=== PATIENT | female | born 1990 | race Caucasian/White ===

== ENCOUNTER 2017-10-31 06:00 | Inpatient (IN) | payer BC ==
[2017-10-29 14:17] LABS: Urine Appearance TURBID; Urine Bilirubin NEGATIVE (NEG); Urine Blood NEGATIVE (NEG); Urine Color YELLOW; Urine Glucose NEGATIVE (NEG); Urine Protein NEGATIVE (NEG)
[2017-10-29 14:18] LABS: Urine Microscopic Reflex ORDER UMIC
[2017-10-29 14:24] LABS: Absolute Lymphocytes (CBC) 1.5 K/uL (0.7-4.9); Absolute Monocytes 0.4 K/uL (0.1-1.3); Absolute Neutrophil 3.2 K/uL (1.8-8.0); Basophils % 0.5 % (0-1.3); Eosinophils % 1.7 % (0-4.4); Hematocrit 33.7 % (36.0-45.0); Lymphocytes % 29.3 % (15.3-44.8); MCH 22.8 pg (27.0-35.0); MCV 72.5 fL (80-100); MPV 7.7 fL (7.6-11.3); Monocytes % 7.2 % (3.3-12.3); RBC Red Blood Cell Count 4.65 M/uL (3.86-4.86)
[2017-10-29 14:25] LABS: Urine Bacteria NONE SEEN /HPF (<20); Urine RBC NONE SEEN /HPF (NONE SEEN)
[2017-10-29 14:26] LABS: Urine Amorphous Sediment 4+ /HPF (NONE SEEN); Urine Culture Reflex Order NOT NEEDED
[2017-10-31] MEDS ORDERED: Ringers Lactate 1,000 ML IV ONE ×5 (06:20→14:07)
[2017-10-31] MEDS ORDERED: FENTANYL CITR 250 MCG/5 ML ONE ×2 (06:59→11:46)
[2017-10-31] MEDS ORDERED: ROCURONIUM 50 MG/5 ML VIAL IV ONE (06:59)
[2017-10-31] MEDS ORDERED: MIDAZOLAM HCL 2 MG/2 ML INJ ONE (06:59)
[2017-10-31] MEDS ORDERED: PROPOFOL 200 MG/20 ML VIAL IV ONE (06:59)
[2017-10-31] MEDS ORDERED: ONDANSETRON HCL 40 MG/20 ML VIAL ONE (06:59)
[2017-10-31] MEDS ORDERED: DEXAMETHASONE 10 MG/ML VIAL ONE (06:59)
[2017-10-31] MEDS ORDERED: LIDOCAINE 2% MPF 5 ML VIAL ONE (06:59)
[2017-10-31] MEDS: NA CHLORIDE 0.9% 1,000 ML ONE ×2 (07:06→07:30)
[2017-10-31] MEDS ORDERED: NA CHLORIDE 0.9% 100 ML IV ONE (07:10)
[2017-10-31] MEDS ORDERED: VASOPRESSIN 20 UNIT/ML VIAL ONE (07:11)
[2017-10-31] MEDS ORDERED: FENTANYL CITR 100 MCG/2 ML ONE ×2 (09:34→10:30)
[2017-10-31] MEDS ORDERED: EPHEDRINE SULF 50 MG/ML SYR ONE (12:12)
[2017-10-31] MEDS ORDERED: ALBUMIN HUM 5% 250 ML IV ONE (12:16)
[2017-10-31] MEDS ORDERED: NA CHLORIDE 0.9% 1,000 ML ONE (12:59)
[2017-10-31] MEDS ORDERED: KETOROLAC 30 MG/ML INJ ONE (13:18)
[2017-10-31] MEDS ORDERED: Mastisol Adhesive Liq ONE (14:01)
[2017-10-31 14:11] LABS: Hematocrit 25.1 % (36.0-45.0)
[2017-10-31] MEDS: MORPHINE 4 MG/ML SYR ONE ×4 (14:41→15:05)
[2017-10-31] MEDS ORDERED: KETOROLAC 30 MG/ML INJ IV PRN (14:51)
[2017-10-31] MEDS ORDERED: SODIUM CHLORIDE IV PRN (14:53)
[2017-10-31] MEDS ORDERED: [UNRECOGNIZED DRUG - OTHER] IV PRN (14:53)
[2017-10-31] MEDS ORDERED: MORPHINE IV PRN (14:53)
[2017-10-31] MEDS ORDERED: Ringers Lactate 1,000 ML IV SCH (15:00)
[2017-10-31 16:12] VITALS: BMI 30.5
[2017-10-31 18:38] LABS: Absolute Lymphocytes (CBC) 0.7 K/uL (0.7-4.9); Absolute Monocytes 0.7 K/uL (0.1-1.3); Absolute Neutrophil 10.7 K/uL (1.8-8.0); Basophils % 0.1 % (0-1.3); Hematocrit 28.3 % (36.0-45.0); Lymphocytes % 6.1 % (15.3-44.8); MCH 24.2 pg (27.0-35.0); MCV 77.1 fL (80-100); MPV 7.6 fL (7.6-11.3); Monocytes % 5.6 % (3.3-12.3); RBC Red Blood Cell Count 3.67 M/uL (3.86-4.86)
[2017-11-01 06:42] LABS: Absolute Lymphocytes (CBC) 1.4 K/uL (0.7-4.9); Absolute Monocytes 0.5 K/uL (0.1-1.3); Absolute Neutrophil 5.2 K/uL (1.8-8.0); Basophils % 0.2 % (0-1.3); Hematocrit 24.3 % (36.0-45.0); Lymphocytes % 19.9 % (15.3-44.8); MCH 24.3 pg (27.0-35.0); MCV 76.3 fL (80-100); MPV 7.7 fL (7.6-11.3); Monocytes % 6.7 % (3.3-12.3); RBC Red Blood Cell Count 3.19 M/uL (3.86-4.86)
[2017-11-01 09:02] LABS: Platelet Estimate ADEQ; Urine White Blood Cell Casts OK
[2017-11-01 09:03] LABS: Anisocytosis 2+; Blood Morphology Comment NOTED (NOT SEEN); Teardrop Cell 1+
[2017-11-01] MEDS ORDERED: PROMETHAZINE 25 MG/SUPP PR PRN (14:49)
[2017-11-01] MEDS: HYDROCODONE/APAP 5/325 MG TAB PO PRN ×2 (15:10→21:51)
[2017-11-01 18:16] LABS: Absolute Lymphocytes (CBC) 1.6 K/uL (0.7-4.9); Absolute Monocytes 0.6 K/uL (0.1-1.3); Absolute Neutrophil 6.9 K/uL (1.8-8.0); Basophils % 0.4 % (0-1.3); Eosinophils % 0.3 % (0-4.4); Hematocrit 24.6 % (36.0-45.0); Lymphocytes % 17.7 % (15.3-44.8); MCH 24.4 pg (27.0-35.0); MCV 77.1 fL (80-100); Monocytes % 6.2 % (3.3-12.3); RBC Red Blood Cell Count 3.19 M/uL (3.86-4.86)
[2017-11-01 23:06] VITALS: O2SAT 99
[2017-11-02] MEDS: HYDROCODONE/APAP 5/325 MG TAB PO PRN ×4 (03:26→21:01)
[2017-11-02] MEDS: FERROUS SULFATE 325 MG TAB PO SCH ×2 (10:28→21:00)
[2017-11-02 10:53] LABS: Absolute Lymphocytes (CBC) 1.3 K/uL (0.7-4.9); Absolute Monocytes 0.6 K/uL (0.1-1.3); Absolute Neutrophil 7.3 K/uL (1.8-8.0); Basophils % 0.4 % (0-1.3); Eosinophils % 0.3 % (0-4.4); Hematocrit 24.2 % (36.0-45.0); MCH 24.9 pg (27.0-35.0); MCV 76.7 fL (80-100); MPV 7.9 fL (7.6-11.3); Monocytes % 6.9 % (3.3-12.3); RBC Red Blood Cell Count 3.15 M/uL (3.86-4.86)
[2017-11-02 11:26] LABS: Anisocytosis 1+; Blood Morphology Comment NOTED (NOT SEEN); Ovalocytes 1+; Platelet Estimate ADEQ; Urine White Blood Cell Casts OK
[2017-11-03] MEDS: HYDROCODONE/APAP 5/325 MG TAB PO PRN ×2 (03:15→08:47)
--- NOTE | 2017-11-03 04:28 | OP ---
Date of Procedure: 10/31/2017 Surgeon: Ines Carrasco MD Flap Curer: Echo Welch M.D. and Loreto Saeed. Preoperative Diagnoses: 1.Heavy menstrual bleeding. 2.Leiomyoma, that is increasing in size. 3.Deep dyspareunia. Postoperative Diagnoses: 1.Heavy menstrual bleeding. 2.Leiomyoma, that is increasing in size. 3.Deep dyspareunia. Procedures Performed: 1.Diagnostic hysteroscopy, diagnostic laparoscopy with laparoscopic myomectomy, the very last part o f the myoma removal. 2.Laparoscopic myomectomy converted to open laparotomy for retrieval of the fibroid specimen as well as repair of the uterus. Multiple fibroids at least 5 or greater. Size of the largest fibroid was at least 15 to 20 cm. Estimated Blood Loss: 1900. Urine Output: 300. Transfusion: 2 units PRBCs, besides her hydration being Ringer's lactate. Specimens: Multiple Leiomyomata. Drains: Esparza catheter. Complications: No complications. Condition: Stable. Description Of Procedure: After informed consent was verified, the patient was taken back to the ope rating room, placed in a supine fashion on the operating table. After general anesthesia was given, she was placed in a dorsal lithotomy position using Pillo stirrups. No antibiotics were given since this was a straightforward myomectomy. The entire abdomen, vulva, vagina, and perineum were prepped and draped in a sterile fashion. Esparza was placed to drain the bladder and attached to a drainage bag. The cervix was exposed with a specul um. Anterior lip grasped with 2 Allis clamps. Diagnostic SlimLine hysteroscope with a 30-degree dre s and normal saline was used for distention medium. Direct hysteroscopy through the cervical canal i nto the uterine cavity was obtained. There was a large protrusion of myoma in the posterior wall to the anterior fundus. The endometrial canal appeared to be unremarkable, otherwise, with no intracavi tary lesions. Both cornual ends were visualized. Scope was removed. Diagnostic VCare inserted. is area was draped. A 0.5 cm supraumbilical incision was made about 10 cm above the umbilicus in a vertical midline plane . The fascia was exposed, incised and tagged. Peritoneum was entered bluntly with the help of finge r and S retractors were placed to enter inside the Napoleon. The abdominal cavity was insufflated with carbon dioxide and scope introduced. A 10 mm, 30-degree lens site of entry was checked and was unre markable. The incision was right below the falciform ligament. A 5 mm from this point a trocar was introduced, and a 5 mm left lower quadrant incision lateral to th e umbilicus above and lateral to the umbilicus. The 5 mm port was placed without any problems in the right lower quadrant, a 5 mm port was placed on the opposite side, a mirror image without any proble ms. Once good visualization was obtained, the entire fibroid appeared to be fundal and posterior. The tu bal openings were at the superior lateral aspects of the fibroid. The ovaries appeared to be unremar kable. There was very little mobility of the uterus due to the large heavy fibroid. There was no sp marcy between the uterus and the posterior wall of the abdominal cavity. Mobility was very minimal wit h the VCare. However, this was more helpful than not. On the right lower quadrant 5 mm extended to 10 mm, and a 10 mm and an 11mm port was placed. Dilute vasopressin 20 units in 40 cc of normal saline was injected, about a total of 40 cc was inject ed on the midline plane, where the incision would be made on the fibroid. There was no way I could r each the uterine arteries because the mobility and visualization was very little due to the fibroid, and very little mobility with the VCare, so there was no place for me to isolate the uterines or clip them . The harmonic scalpel was opened up. An incision was made with the Harmonic on the serosa myometrium. This incision was carried down all the way to the level of the fibroid. The incision was at least 15 cm from top to the bottom on the anterior aspect. Dissection was carried to separate the fibroid, gradually on both sides flaps were raised. A 10 mm tenaculum was used to grasp the uterus and syste matically dissected down laterally on both sides. Then, posteriorly, I came down a little further, a n incision about 2 to 3 cm was made to allow the fibroid to be scooted out. The tenaculum was placed on multiple spots on the fibroid to be able to move it and be able to dissect it. Systematically, c arefully the fibroid was shelled down, the myometrium appeared to be very thick on top. This seemed to be completely intramural fibroid, more closer to the endometrium, than the serosa. Painstakingly, a long time was taken to dissect and remove the fibroid. There was some bleeding init ially, about 300 mL. However, once I got down to the base of the fibroid, there were 2 other little fibroids that were removed. The fibroids were held with the help of a 0 Vicryl loop stitch. The 1 t hat was larger was held and through the left lower quadrant port. Then using the push-pull technique and using the suction tip dissection was performed. Once I came to the base, there was much bleedin g, probably about 3 to 4 cm of the fibroid was still left attached to the endometrial canal in its po sterior aspect, here I recognized where the endometrial canal was opened up, so stayed posterior to t he endometrium and the myoma was attempted to be removed here. The bleeding started to get heavier. There were couple of other fibroids on each side which were also dissected, and kept with the specim en. Once the bleeding got heavier, 2000 mL, then a stat H and H was drawn and sent. However, there was some trouble with the lab running this, so we ordered 2 units of blood. When the dissection and the fibroid was being removed from the posterior wall as well as the bed of the endometrium, she star keerthi to bleed heavier and at this point decided to perform a laparotomy because it is probably very sm all amount of the fibroid left, so most of the myomectomy was conducted. I thought it was appropriat e to do a low transverse incisions, so Pfannenstiel skin incision was made with a 10 blade. Dissecti on carried through the subcutaneous fat with the help of the monopolar Bovie. Then, fascia incised w ith the Bovie and incision carried laterally on both sides. First, a small incision made, then it wa s extended from a lateral normal lap and the fascia was held, and the muscles were dissected superior ly and inferiorly. Then, the peritoneum was identified by using hemostats. Between 2 hemostats this was picked up, the peritoneum entered sharply with scissors. Then the peritoneal cavity was entered , the incision extended superiorly and inferiorly to encompass the entire incision. Here, an attempt was made to bring the fibroid out. It was very difficult. Tenaculum and mass clamps were placed on the fibroid to pull them up, partially we had to cut the fibroid in order for me to scoot that out th rough the incision. Once, partially the fibroids were cut, then the entire fibroid was delivered out side and this had split the uterus at the fundus going posteriorly into the posterior wall into 2, it was almost like bisecting the uterus, so once the fibroid was removed from its base with the help of Bovie as well as sharp dissection, the specimen was handed out. There were 2 other specimens that w ere removed. After thorough irrigation and suction the canal was identified. The endometrium was cl osed without actually suturing the endometrium itself being in the subendometrial plane. The tissues were brought together with a simple running 0 Vicryl stitch imbricating the endometrium. Then, the myometrium was closed, especially in the posterior wall where it was thick and needed for the cavity to be collapsed without loss of any myometrial tissue. The suture line was sewed in 4 layers besides the subendometrial suturing, which was the fifth layer. After 3 layers of closure in a continuous l ocked fashion, the rest of them all in a continuous running fashion. The entire uterus was reshaped and looked good and looked hemostatic. The 6 line of suturing was a 3-0 Monocryl. This was used in a baseball stitch to close the entire incision. The tips were buried and the entire uterus was close d and was perfectly hemostatic here. Tubes and ovaries were inspected. No evidence of any damage to the tubal openings of the cornual ends, and there was no expansion of any areas of the myometrium re presenting bleeding, so thorough irrigation and suction of the peritoneal cavity was done. Clots wer e removed, irrigation appeared to be clear at the end, then the bowel was inspected, no evidence of a ny trauma here. The uterus was put back. The peritoneum was closed with the help of 3-0 Vicryl in a continuous running fashion. Then, the rectus muscle was brought with chromic sutures in a horizonta l mattress fashion. Then, fascia closed with the help of continuous running 0 Vicryl stitch. Subcut aneous tissues with interrupted 3-0 chromic and subcuticular with the help of 4-0 Monocryl. After this was closed, realized that there was a small fibroid left that was hanging from the left lo wer quadrant port, this was brought out by inserting the scope back in and insufflating the abdominal cavity and the supraumbilical scope port was closed with the help of the tag sutures in a figure-of- eight fashion and so I extended the incision in the right lower quadrant port after putting the 10 po rt back in, the camera was inserted through here. Then, once the suture of the of the specimen was p ushed back into the peritoneal cavity. The stent was changed to 5 and a grasper was used to bring th e stitch out through the 10, then gas was desufflated. The 5 port was closed with interrupted 4-0 Mo nocryl. The incision on the fascia of the right lower quadrant 10 mm was increased to 15 mm and the fibroid was retrieved by slightly morcellating it. Then, the fascia was closed in a continuous runni ng fashion with 0 Vicryl, then all the skin incisions closed with the help of 4-0 Monocryl. The Fole y was left in place after draining completely. The first unit was transfused. The patient's vitals w ere completely stable. Instrument, needle, and sponge counts x3 were done at the end of the case and they were correct. She was recovered from anesthesia and taken to PACU in stable condition. She wi ll be admitted to the floor for monitoring for 2 or 3 days postoperatively. GREER Voice ID: [id number] Report ID: [id number]
[2017-11-03 05:02] LABS: Absolute Lymphocytes (CBC) 1.7 K/uL (0.7-4.9); Absolute Monocytes 0.7 K/uL (0.1-1.3); Absolute Neutrophil 5.9 K/uL (1.8-8.0); Basophils % 0.7 % (0-1.3); Eosinophils % 0.7 % (0-4.4); Hematocrit 23.5 % (36.0-45.0); Lymphocytes % 19.9 % (15.3-44.8); MCH 24.4 pg (27.0-35.0); MPV 8.2 fL (7.6-11.3); Monocytes % 8.1 % (3.3-12.3); RBC Red Blood Cell Count 3.05 M/uL (3.86-4.86)
[2017-11-03 05:58] VITALS: TEMP 99.3
[2017-11-03 07:30] VITALS: BP 113/58
[2017-11-03] MEDS: FERROUS SULFATE 325 MG TAB PO SCH (08:47)
== END 2017-11-03 09:00 | disposition home or self-care (01) | DRG 742 ==
LOC: OR 06:00 → 2ND-WC 13:30
PROVIDERS: ADMIT Obstetrics & Gynecology; ATTEND Obstetrics & Gynecology
PROC: 0UB90ZZ Excision of Uterus, Open Approach (ICD-10-PCS; 2017-10-31)
PROC: 0UQ90ZZ Repair Uterus, Open Approach (ICD-10-PCS; 2017-10-31)
PROC: 0UJD8ZZ Inspection of Uterus and Cervix, Via Natural or Artificial Opening Endoscopic (ICD-10-PCS; 2017-10-31)
PROC: 30233N1 Transfusion of Nonautologous Red Blood Cells into Peripheral Vein, Percutaneous Approach (ICD-10-PCS; 2017-10-31)
PROC: 0UB94ZZ Excision of Uterus, Percutaneous Endoscopic Approach (ICD-10-PCS; principal; 2017-10-31 07:00)
DX: D25.1 Intramural leiomyoma of uterus (principal); N99.61 Intraoperative hemorrhage and hematoma of a genitourinary system organ or structure complicating a genitourinary system procedure; D62 Acute posthemorrhagic anemia; Z53.31 Laparoscopic surgical procedure converted to open procedure; R50.82 Postprocedural fever; N92.1 Excessive and frequent menstruation with irregular cycle; N94.12 Deep dyspareunia
CPT/HCPCS: 36415; 81003; 81015; 81025; 85014; 85018; 85025; 86850; 86900; 86901; 88305; J1100; J2250; J2270; J2405; J3010; J7030; P9016; P9045